=== PATIENT | female | born 1980 | race Caucasian/White ===

== ENCOUNTER 2016-11-01 05:18 | Inpatient (IN) | payer BC ==
--- NOTE | ~2016-11-01 | DS ---
Unit #: [id number] #: [id number] Patient: ANURAG SANTOS [id number] [address] [place], [place] [address] [id number] I MR#: [id number] NAME: ANURAG SANTOS ROOM: 560 Age: 35 Sex: F Admission Date: 11/01/2016 : 1980 Discharge Date: Attending Physician: Sylvia Vazquez M.D. Primary Care Physician: No Primary Care Physician DISCHARGE SUMMARY DISCHARGE DIAGNOSES 1. Pulmonary embolism involving right lower lobe pulmonary artery. 2. Pleuritic chest pain. 3. Small left pleural effusion. 4. History of asthma. 5. History of basal cell carcinoma involving left upper extremity complicated by staph infection, status post excision. 6. Obesity, body mass index of 38. 7. History of right calf pain, ultrasound is pending at the time of dictation. 8. Menorrhagia. CONSULTATION Dr. Espinosa. PROCEDURE None. DIAGNOSTIC STUDIES LABORATORY: Sodium 135, potassium 4.2, creatinine 0.7. Liver enzymes normal. WBC 6.1, hemoglobin 13, platelets 197,000. INR 1. Troponins negative. D-dimer 442. IMAGING: Ultrasound is pending at the time of dictation. Chest x-ray: Negative. CT angio chest shows right lower lobe pulmonary artery embolism. ALLERGIES None. DISCHARGE MEDICATIONS 1. Lortab 5 mg three times daily p.r.n. pain. 2. Motrin 200 p.o. three times daily p.r.n. pain take with meals. 3. Eliquis 10 mg p.o. b.i.d. for seven days, followed by 5 mg p.o. b.i.d. This medication if okay with Dr. Espinosa. I am waiting on him to decide on the anticoagulation of choice. HOSPITALIZATION COURSE A 35-year-old admitted because of chest pain. Acute PE, right lower lobe: Patient was given Lovenox. Patient will be seen by Dr. Espinosa and started on p.o. anticoagulation before discharge. I Unit #: [id number] #: [id number] Patient: ANURAG SANTOS gave prescription for Eliquis. grants manager to check the cost of it. If Dr. Espinosa agrees, will discharge her. Ultrasound of the right leg is pending. She does have some calf pain there. Acute hypoxic respiratory failure on 2 L, currently off oxygen. I am going to check if she needs oxygen or not. Pleuritic chest pain, likely from PE: Continue with Motrin and Lortab p.r.n. History of asthma: Stable. Patient will be discharged home after seen by Dr. Espinosa. Anticoagulation of choice as per him. Follow with PCP in one week time. Dictated by... Chanel Valdes/richy TD: 11/02/2016 14:51 JOB #: [id number] DISCHARGE SUMMARY Page 1 of 1 X Sylvia Vazquez MD X DISCHARGE SUMMARY
--- NOTE | ~2016-11-01 | CO ---
Unit #: [id number] #: [id number] Patient: ANURAG LIVINGSTON [id number] [facility] [address]. [place], [place] [address] [id number] I MR#: [id number] NAME: ANURAG LIVINGSTON ROOM: 560 Age: 35 Sex: F Admission Date: 11/01/2016 : 1980 Attending Physician: Bella Meyers M.D. Primary Care Physician: Jen Primary Care Physician Requesting Physician: Bella Meyers M.D. Consultation Date: 11/01/2016 CONSULTATION REPORT REASON FOR CONSULTATION Pulmonary embolism. CHIEF COMPLAINT Chest pain. HISTORY OF PRESENT ILLNESS Ms. Livingston is a very pleasant 35-year-old lady who has previous history of melanoma, who was recently started on oral contraceptive therapy because of heavy menstrual periods. She has been taking it for a little more than a month. Now she presented with sharp left-sided chest pain. It has been fairly constant. It is associated with shortness of air. Patient initially thought it was due to indigestion. She took Tums without any relief. Ultimately she presented to the [facility] where she was found to have elevated D-dimer at 442. Her oxygen saturation was normal at 100% on room air, pulse 72, blood pressure 139/63. Because of the elevated D-dimer she underwent a CT angiogram, which showed pulmonary emboli in the subsegmental branches of the right lower lobe pulmonary artery. She was started on Lovenox 125 mg subcutaneous injection at therapeutic dose, as well as aspirin. She was given 0.5 mg of Dilaudid and then transferred to [facility]. Patient has been evaluated here. Ultrasound of the lower extremity has been also ordered because the patient was having some cramps and discomfort of the right lower extremity. Patient denies any trauma to the right leg. Patient denies any significant road trips recently. There is no family history of thromboembolism. PAST MEDICAL HISTORY Significant for melanoma, which was removed from her left side of the face in the lip area. She underwent excision in [place], [place] at [facility]. She has not had any recurrent problems. She also has had excision of a basal cell carcinoma of the skin. PAST MEDICAL HISTORY Significant for asthma. PAST SURGICAL HISTORY Appendectomy, knee surgery, excision of melanoma, excision of basal cell carcinoma, bilateral tubal ligation. SOCIAL HISTORY The patient is , lives with her and six children. 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 She is a never smoker. Occasionally drinks alcohol. Unit #: [id number] #: [id number] Patient: ANURAG LIVINGSTON FAMILY HISTORY Remarkable for coronary artery disease and myocardial infarction in her father. Mother is in good health. So are two of her siblings. ALLERGIES No known drug allergies. CURRENT MEDICATIONS Patient had been started on control pill. She does not know the exact name, a little more than a month ago, because of heavy periods due to dysfunctional uterine bleeding. REVIEW OF SYSTEMS Now patient is complaining of severe sharp, left-sided chest pain 7 to 8 out of 10. Patient has not received any pain medication after being transferred to [facility]. Review of system is negative except for left-sided sharp chest pain. Currently patient does not complain of any dyspnea. PHYSICAL EXAMINATION VITAL SIGNS: Temperature 98.1, pulse 72, respiration 18, blood pressure 139/63, oxygen saturation 100% on room air. The rest of the physical exam is negative. Please make note that patient does have morbid obesity. Her BMI was calculated to be 38. DIAGNOSTIC STUDIES LABORATORY STUDIES: D-dimer 442, CBC and CMP are completely normal. Troponin was less than 0.05. IMAGING STUDIES: CT angiogram shows pulmonary emboli in the subsegmental branches of the left lower lobe pulmonary artery, as well as small left effusion. ASSESSMENT AND PLAN Ms. Livingston is a very pleasant 35-year-old lady who was admitted with pulmonary embolism. Currently she is quite stable on therapeutic Lovenox, which should be continued at mg/kg every 12 hours. Her dose is about 125 mg. Currently patient is quite symptomatic with pain. Tylenol and Toradol had been ordered by Dr. Meyers, which will be continued. After the improvement of her symptoms, patient could be changed to oral anticoagulant, namely Eliquis. She will need at least 3-6 months of anticoagulation because patient has two risk factors, namely oral contraceptives, which had been discontinued. Patient is going to discuss and alternative treatment for her menometrorrhagia with her stereoptic projection topographer. She will not be taking any estrogen hormones. Second risk factor is her obesity, this was also discussed with the patient. Dictated by... Cristo Espinosa M.D., Ph.D. HOWARD/saundra TD: 11/01/2016 17:51 JOB #: [id number] Unit #: [id number] #: [id number] Patient: ANURAG LIVINGSTON CONSULTATION REPORT Page 1 of 1 X X CONSULTATION REPORT
--- NOTE | ~2016-11-01 | EKG ---
PATIENT: ANURAG SANTOS UNIT #: [id number] Ventricular Rate: 76 BPM Atrial Rate: 76 BPM P-R Interval: 132 ms QRS Duration: 74 ms Q-T Interval: 388 ms QTC Calculation(Bezet): 436 ms P Currie: 14 degrees Calculated R Currie: 7 degrees Calculated T Currie: 2 degrees Diagnosis Line: Normal sinus rhythm Diagnosis Line: Normal ECG Diagnosis Line: When compared with ECG of 08-JUL-2015 14:24, Diagnosis Line: No significant change was found Diagnosis Line: Confirmed by SALTY RUIZ MD ([id number]) on Diagnosis Line: 11/03/2016 8:36:43 AM INTERPRETING MD: SARA LUCERO
--- NOTE | ~2016-11-01 | CT16 ---
[facility] A Service of [facility] RADIOLOGY TEXT RESULTS PATIENT: ANURAG SANTOS LOCATION: [facility] 560-01 : [birth year] UNIT #: [id number] AGE: [address]: Sylvia Vazquez MD SEX: F ORDER DR: [id number] [address] [address] [id number] E MR#: [id number] Acc #: [id number] NAME: ANURAG SANTOS : 1980 SEX: F STUDY DATE/TIME: 11/01/2016 8:08 UNIT: SED ROOM: STUDY DESCRIPTION: CT Angio Chest for PE Attending Physician: Larry Rodriguez M.D. Ordering Physician: Ar Lester M.D. Primary Care Physician: No Primary Care Physician MEDICAL IMAGING REPORT This report is preliminary unless electronic signature is present. EXAM CT scan of the chest with intravenous contrast 11/01/2016 HISTORY Chest pain beginning at 2200 last night. Pressure under left breast and extends into left shoulder, pain radiates into left jaw. Elevated D-dimer 442. Asthma. Evaluate for a pulmonary embolus. TECHNIQUE Spiral CT was performed through the chest following intravenous contrast administration using pulmonary embolus protocol. 3D reconstructions of the chest were then performed following intravenous contrast administration. This CT exam was performed with one or more of the following radiation dose reduction techniques: Automatic exposure control, adjustment of mA and/or kV according to patient size, and iterative reconstruction. FINDINGS Examination is abnormal demonstrating filling defects in the segmental branches of the right lower lobe pulmonary artery characteristic of pulmonary embolus. Findings were called to the ordering clinician at 08:30 a.m. on 11/01/2016. The heart is normal in size. There is no significant thoracic adenopathy. There is a small left pleural effusion. Small hiatal hernia is noted. The lungs are clear. IMPRESSION 1. Abnormal examination demonstrating pulmonary emboli in the segmental branches of the right lower lobe pulmonary artery. 2. Small left pleural effusion. 3. Small hiatal hernia. STAT * RESULT [facility] A Service of [facility] & [facility] RADIOLOGY TEXT RESULTS PATIENT: ANURAG SANTOS LOCATION: [facility] 560-01 : [birth year] UNIT #: [id number] AGE: [address]: Sylvia Vazquez MD SEX: F ORDER DR: Dictated by... Jason Kenny M.D. THIS IS AN ELECTRONICALLY VERIFIED REPORT Jason Kenny M.D. at 11/02/2016 8:03 AM ESPERANZA/lina TD: 11/01/2016 08:38 JOB #: [id number] MEDICAL IMAGING REPORT Page 1 of 1
--- NOTE | ~2016-11-01 | CR72 ---
[facility]. [facility] A Service of [facility] & [facility] RADIOLOGY TEXT RESULTS PATIENT: ANURAG SANTOS LOCATION: [facility] 560-01 : [birth year] UNIT #: [id number] AGE: [address]: Sylvia Vazquez MD SEX: F ORDER DR: [id number] [address] [address] [id number] E MR#: [id number] Acc #: [id number] NAME: ANURAG SANTOS : 1980 SEX: F STUDY DATE/TIME: 11/01/2016 5:43 UNIT: SED ROOM: STUDY DESCRIPTION: CR Chest Single View Portable Attending Physician: Larry Rodriguez M.D. Ordering Physician: Larry Rodriguez M.D. Primary Care Physician: No Primary Care Physician MEDICAL IMAGING REPORT This report is preliminary unless electronic signature is present. EXAM Portable chest 11/01/2016 HISTORY Acute chest pain in upper lung estrada beginning at 2200 last night. Pain radiates to bilateral shoulders and neck. No known injury. FINDINGS A single AP portable view of the chest shows both lungs to be clear. The heart is normal in size. The mediastinal contour is normal. No significant bone abnormalities are seen. IMPRESSION Normal portable chest. Dictated by... Jason Kenny M.D. THIS IS AN ELECTRONICALLY VERIFIED REPORT Jason Kenny M.D. at 11/02/2016 8:05 AM ESPERANZA/lina TD: 11/01/2016 09:18 JOB #: [id number] MEDICAL IMAGING REPORT Page 1 of 1
--- NOTE | ~2016-11-01 | US84 ---
[id number] [facility] [address] [place], [place] [address] [id number] I MR#: [id number] Acc #: [id number] NAME: ANURAG SANTOS : 1980 SEX: F STUDY DATE/TIME: 11/02/2016 15:23 UNIT: C5B ROOM: [facility] STUDY DESCRIPTION: US LE Veins Complete Efren Stdy Attending Physician: Sylvia Vazquez M.D. Ordering Physician: Bella Meyers M.D. Primary Care Physician: Primary Care Physician No MEDICAL IMAGING REPORT This report is preliminary unless electronic signature is present EXAM Bilateral lower extremity venous duplex, 11/02/2016 INDICATIONS Pain and pressure under left breast with elevated D-dimer of 442. Evaluate for deep vein thrombosis. TECHNIQUE Venous ultrasound examination of both lower extremities was performed using grayscale, spectral Doppler and color flow Doppler imaging. FINDINGS The examination is negative. There is no evidence of deep venous thrombus from the groin to the lower calf bilaterally. Visualized greater saphenous veins are also patent. IMPRESSION Negative examination. No evidence of lower extremity deep venous thrombosis. Dictated by... Jason Kenny M.D. THIS IS AN ELECTRONICALLY VERIFIED REPORT Jason Kenny M.D. at 11/03/2016 8:05 AM ESPERANZA/taras TD: 11/02/2016 23:53 JOB #: [id number] MEDICAL IMAGING REPORT Page 1 of 1 COPY
--- NOTE | ~2016-11-01 | HP ---
Unit #: [id number] #: [id number] Patient: ANURAG SANTOS [id number] [facility]. [place], [place] [address] [id number] I MR#: [id number] NAME: ANURAG SANTOS ROOM: 560 Age: 35 Sex: F Admission Date: 11/01/2016 : 1980 Attending Physician: Bella Meyers M.D. Primary Care Physician: No Primary Care Physician HISTORY AND PHYSICAL CHIEF COMPLAINT Chest pain. HISTORY OF PRESENT ILLNESS The patient is a 35-year-old female with a past medical history of asthma, melanoma, basal cell carcinoma who presented to [facility] for evaluation of the above. The patient states that she was in her usual state of health until the evening prior to admission when she experienced pain in the left chest. She states that the pain is in the left side of the chest beneath her breast. She describes it as "sharp." It has been fairly constant in nature. She did have associated shortness of breath, as well as diaphoresis, nausea, and vomiting. She states that she initially thought the pain was similar to when she has had indigestion in the past. She had been to a cookout. She took some Tums with no relief. She ultimately presented to the emergency department for further evaluation. In the emergency department initial oxygen saturation was 100% on room air. Pulse 72, blood pressure 139/63. D-dimer was elevated at 442. CT of the chest, PE protocol was done and showed pulmonary emboli in the subsegmental branches of the right lower lobe pulmonary artery. She was given Lovenox 125 mg subcu. She also received 325 mg of aspirin and 0.5 mg of Dilaudid. She was transferred to [facility] for admission. PAST MEDICAL HISTORY 1. Admission to [facility] on 2013 for infection involving the left arm. She states that she had a basal cell carcinoma excised from the arm and developed a "staph infection" (no records). 2. Asthma. 3. History of melanoma involving the face, status post excision in [place], [place], ten years ago. The patient's lymphedema therapist is currently Dr. Knox. PAST SURGICAL HISTORY 1. Excision of melanoma from the face. 2. Appendectomy. 3. Knee surgery. 4. Left arm surgery to removal basal cell carcinoma 5. Bilateral tubal ligation. SOCIAL HISTORY The patient lives with her and six children. 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 She denies tobacco use. She reports occasional alcohol use. FAMILY HISTORY Notable for her father having a myocardial infarction at the age of 55. ALLERGIES No known allergies. HOME MEDICATIONS A control pill. REVIEW OF SYSTEMS Complete review of systems is negative except as indicated in the HPI. The patient states that she was started on an oral contraceptive about six weeks ago for dysfunctional uterine bleeding. She states that she had long and heavy periods. The patient states that she has had intermittent right calf pain for the past week. She also reports dyspnea on exertion for about the past month when doing minimal activity such as housecleaning. PHYSICAL EXAMINATION VITAL SIGNS: Temperature 98.1, pulse 72, respirations 18, blood pressure 139/63, oxygen saturation 100% on room air. GENERAL: The patient is a very pleasant, female who is awake and alert in no acute distress. HEENT: The head is atraumatic. Mucous membranes are moist. NECK: Supple. Trachea is midline. CARDIOVASCULAR: Regular rate and rhythm. LUNGS: Clear to auscultation bilaterally with no increased work of breathing. ABDOMEN: Soft, nontender with bowel sounds present in all four quadrants. EXTREMITIES: Nontender with no pedal edema. NEUROLOGIC: The patient is awake and alert. She follows commands. PSYCH: Mood and affect are normal. The patient is cooperative. SKIN: Skin of examined areas is warm and dry. DIAGNOSTIC STUDIES IMAGING STUDIES: CT of the chest - PE protocol shows pulmonary emboli in the segmental branches of the right lower lobe pulmonary artery. It also shows a small left pleural effusion. Chest x-ray is normal. CARDIOLOGY STUDIES: EKG shows normal sinus rhythm at a rate of 76 BPM. LABORATORY STUDIES: D-dimer is 442. Comprehensive metabolic panel is completely normal. Troponin is less than 0.05. Complete blood count is completely normal. ASSESSMENT The patient is a 35-year-old female with: 1. Pulmonary emboli involving the segmental branch of the right lower lobe pulmonary artery. The patient was recently started on oral contraceptive. 2. Small left pleural effusion. 3. Asthma. 4. History of melanoma involving the face, status post excision. 5. History of basal cell carcinoma involving the left upper extremity, Unit #: [id number] #: [id number] Patient: ANURAG SANTOS complicated by a "Staph infection," status post excision. 6. Obesity with a BMI of 38. 7. Right calf pain. 8. Menometrorrhagia. PLAN 1. Admit to an intermediate level. 2. Healthy heart diet. 3. Lovenox 1 mg/kg subcu q.12 hours. 4. Bilateral lower extremity venous Dopplers for further evaluation of calf pain with history of PE. 5. Consult Dr. Espinosa regarding PE. 6. P.r.n. Toradol. 7. P.r.n. Tylenol. 8. Supplemental oxygen. 9. Discontinue oral contraceptive. 10. Serial cardiac enzymes. 11. Repeat labs in the morning including INR. 12. Additional workup and consultants based on above. 1. Dictated by Chanel Nassar/saundra TD: 11/01/2016 14:04 JOB #: [id number] HISTORY AND PHYSICAL Page 1 of 1 X Bella Meyers MD X HISTORY AND PHYSICAL
[~2016-11-01 05:18] MED LIST: ALBUTEROL0.63 MG/3 INH; ALBUTEROL17 GM INH; CEPHALEXIN500 M1; CLEOCIN HCL300 M1 PO; DELTASONE20 MG PO; MULTI VITAMIN1 EACH PO; NORCO1 TAB 10/3 PO; PROMETHAZINE D118 ML PO; ZITHROMAX1 G/PKT PO
[2016-11-01] MEDS ORDERED: BIRTH CONTROL PILL PO (05:32)
[2016-11-01 05:41] LABS: BASOPHIL# 0.1 X10e3 (0-0.3); BASOPHIL% 0.8 % (0-2.5); EOSINOPHIL# 0.3 X10e3 (0-0.7); EOSINOPHIL% 3.4 % (0.0-7.0); HEMATOCRIT 39.3 % (35.0-45.0); HEMOGLOBIN 13.5 gm/dL (12.0-16.0); LYMPHOCYTE# 3.3 X10e3 (1.0-3.5); LYMPHOCYTE% 38.3 % (17.0-45.0); MEAN CELL VOLUME 90.3 FL (83-96); MEAN CORPUSCULAR HEMOGLOBIN 31.1 PG (28-34); MEAN CORPUSCULAR HGB CONC 34.4 g/dL (30-36); MEAN PLATELET VOLUME 7.6 FL (6.5-11.5); MONOCYTE# 0.7 X10e3 (0-1.0); MONOCYTE% 7.6 % (3.0-12.0); NEUTROPHIL# 4.3 X10e3 (1.5-7.1); NEUTROPHIL% 49.9 % (40-75); PLATELET COUNT 234 X10e3 (140-420); RED BLOOD COUNT 4.35 X10e (3.90-5.30); RED CELL DISTRIBUTION WIDTH 12.4 % (11.0-15.5); WHITE BLOOD COUNT 8.7 X10e3 (4.0-10.5)
[2016-11-01 05:47] LABS: DIFF IND NO
[2016-11-01 05:56] LABS: POC - CKMB <1.0 ng/mL (0.0-7.9); POC - TROPONIN <0.05 ng/mL (<=0.05)
[2016-11-01 06:02] LABS: ALBUMIN SERUM 3.7 g/dL (3.5-5.0); BILIRUBIN, DIRECT 0.1 mg/dL (0.0-0.2); BILIRUBIN,INDIRECT 0.3 mg/dL (0.0-0.9); BILIRUBIN,TOTAL 0.4 mg/dL (0.2-2.0); BUN/CREATININE RATIO 16.25; CALCIUM SERUM 8.4 mg/dL (8.4-10.2); CREATININE SERUM 0.8 mg/dL (0.6-1.4); GLOM FILT RATE Estimated 94.9 mL/min (>60); POTASSIUM 4.3 mmol/L (3.5-5.1); PROTEIN TOTAL SERUM 7.1 g/dL (6.0-8.3)
[2016-11-01 14:58] LABS: CK TOTAL 47 IU/L (26-140)
[2016-11-01 22:24] LABS: CK TOTAL 47 IU/L (26-140)
[2016-11-02 06:04] LABS: HEMATOCRIT 37.9 % (35.0-45.0); MEAN CELL VOLUME 90.1 FL (83-96); MEAN CORPUSCULAR HEMOGLOBIN 30.8 PG (28-34); MEAN CORPUSCULAR HGB CONC 34.2 g/dL (30-36); MEAN PLATELET VOLUME 7.9 FL (6.5-11.5); RED BLOOD COUNT 4.21 X10e (3.90-5.30); RED CELL DISTRIBUTION WIDTH 12.2 % (11.0-15.5); WHITE BLOOD COUNT 6.1 X10e3 (4.0-10.5)
[2016-11-02 07:26] LABS: ALBUMIN SERUM 3.3 g/dL (3.5-5.0); BILIRUBIN,TOTAL 0.5 mg/dL (0.2-2.0); BUN/CREATININE RATIO 15.71; CALCIUM SERUM 8.4 mg/dL (8.4-10.2); CREATININE SERUM 0.7 mg/dL (0.6-1.4); GLOM FILT RATE Estimated 111.5 mL/min (>60); POTASSIUM 4.2 mmol/L (3.5-5.1); PROTEIN TOTAL SERUM 6.3 g/dL (6.0-8.3)
[2016-11-02] MEDS ORDERED: LORTAB 5-325 M1 EACH PO (16:35)
[2016-11-02] MEDS ORDERED: ELIQUIS5 MG PO (16:35)
[2016-11-02] MEDS ORDERED: MOTRIN IB200 M1 PO (16:36)
== END 2016-11-02 20:30 | disposition home or self-care (01) | DRG 175 ==
LOC: SED 05:18 → C5B 09:03 → CEDOF 09:03 → SED 09:03 → CEDOF 10:48 → C5B 10:48 → CEDOF 13:10 → C5B 13:10
PROVIDERS: Emergency Medicine; Family Medicine
PROC: B32TYZZ Computerized Tomography (CT Scan) of Left Pulmonary Artery using Other Contrast (ICD-10-PCS; principal; 2016-11-01)
PROC: B32SYZZ Computerized Tomography (CT Scan) of Right Pulmonary Artery using Other Contrast (ICD-10-PCS; 2016-11-01)
DX: I26.99 Other pulmonary embolism without acute cor pulmonale (principal); J96.01 Acute respiratory failure with hypoxia; J45.909 Unspecified asthma, uncomplicated; Z85.820 Personal history of malignant melanoma of skin; Z82.49 Family history of ischemic heart disease and other diseases of the circulatory system; Z90.49 Acquired absence of other specified parts of digestive tract; Z79.3 Long term (current) use of hormonal contraceptives; R07.81 Pleurodynia; E66.9 Obesity, unspecified; Z68.38 Body mass index [BMI] 38.0-38.9, adult; N92.0 Excessive and frequent menstruation with regular cycle; N92.1 Excessive and frequent menstruation with irregular cycle; M79.661 Pain in right lower leg
CPT/HCPCS: 36415; 71010; 71275; 80048; 80053; 80076; 82550; 82553; 84484; 85025; 85027; 85379; 85610; 93005; 93970; 94760; 96372; 96374; 96375; 99285; J1170; J1650; J1885; J2405; Q9967

== ENCOUNTER → 2016-12-21 | Outpatient (CLI) | payer BC ==
[~2016-12-21] MED LIST changes: +BIRTH CONTROL PILL PO; +ELIQUIS5 MG PO; +LORTAB 5-325 M1 EACH PO; +MOTRIN IB200 M1 PO
--- NOTE | ~2016-12-21 | CT16 ---
[facility] A Service of [facility] RADIOLOGY TEXT RESULTS PATIENT: ANURAG SANTOS LOCATION: [facility] : 78 UNIT #: [id number] AGE: [address]: Cristo Espinosa MD SEX: F ORDER DR: [id number] [address] [address] [id number] O MR#: [id number] Acc #: [id number] NAME: ANURAG SANTOS : 1980 SEX: F STUDY DATE/TIME: 12/21/2016 8:45 UNIT: [facility] ROOM: STUDY DESCRIPTION: CT Angio Chest for PE Attending Physician: Cristo Espinosa M.D., Ph.D. Referring Physician: Cristo Espinosa M.D., Ph.D. Ordering Physician: Ariela Espinosa M.D. Primary Care Physician: Venita Franks A.P.R.N. MEDICAL IMAGING REPORT This report is preliminary unless electronic signature is present. EXAM CT angiogram of the chest INDICATION Shortness of breath for 1.5 months. Patient was noted to have a pulmonary embolus on 11/01/2016 in segmental branches to the right lower lobe. TECHNIQUE Axial CT images were obtained from the thoracic inlet through the dome of the diaphragm following the administration of intravenous contrast material. Following this, 3D reformatted images were obtained. This CT exam was performed with one or more of the following radiation dose reduction techniques: Automatic exposure control, adjustment of mA and/or kV according to patient size, and iterative reconstruction. FINDINGS Timing of the contrast bolus is suboptimal, however, no definite pulmonary thromboembolus is seen. Thoracic aorta measures within normal size limits. Thyroid gland and trachea appear within normal limits. There is a small hiatal hernia. There is no pleural or pericardial effusion. No pulmonary infiltrates are seen. No acute abnormality is seen within the upper abdomen. No aggressive osseous abnormalities are identified. IMPRESSION 1. Limited examination due to poor timing of contrast bolus, however, no definite pulmonary thromboembolus is seen. Previously identified nonocclusive thrombus noted within the right lower lobe is not seen on today's examination. 2. No acute intrathoracic process seen. 3. Small hiatal hernia. [facility] A Service of [facility] RADIOLOGY TEXT RESULTS PATIENT: ANURAG SANTOS LOCATION: [facility] : 78 UNIT #: [id number] AGE: [address]: Cristo Espinosa MD SEX: F ORDER DR: Dictated by... Kortney Betts M.D. THIS IS AN ELECTRONICALLY VERIFIED REPORT Kortney Betts M.D. at 12/21/2016 5:02 PM AFF/aa TD: 12/21/2016 12:48 JOB #: [id number] MEDICAL IMAGING REPORT Page 1 of 1
== END | disposition home or self-care (01) ==
LOC: SCT 08:07
DX: I26.99 Other pulmonary embolism without acute cor pulmonale (principal); K44.9 Diaphragmatic hernia without obstruction or gangrene
CPT/HCPCS: 71275; Q9967